=== PATIENT | male | born 1965 | race Caucasian/White ===

== ENCOUNTER → 2018-05-03 07:46 | Outpatient (CLI) | payer BC, SELFPAY ==
--- NOTE | 2018-05-03 | CI_ITS ---
Cerebrovascular Exam Indications: 782.0 Disturbance of skin sensation. IMPRESSIONS 1. The bilateral vertebral arteries are patent with normal antegrade flow. 2. Study suggests 50-69%(lower end of scale)stenosis involving the right internal carotid artery. 3. Study suggests less than 20% stenosis involving the left internal carotid artery. History: Risk factors: Current tobacco use. Hypertension. Diabetes mellitus. Hyperlipidemia. Carotid duplex study. Complete study and Doppler flow study including spectral analysis, color and buck scale imaging. Location: Vascular laboratory. Patient status: Outpatient. Tables: Arterial flow: + +--------+--------+ Location V sys V ed + +--------+--------+ Right CCA - proximal 152cm/s 27.5cm/s + +--------+--------+ Right CCA - distal 83.3cm/s 19.6cm/s + +--------+--------+ Right ECA 203cm/s -------- + +--------+--------+ Right ICA - proximal 152cm/s 57.8cm/s + +--------+--------+ Right ICA - mid 158cm/s 61.6cm/s + +--------+--------+ Right ICA - distal 119cm/s 40.3cm/s + +--------+--------+ Right vertebral 89.4cm/s -------- + +--------+--------+ Left CCA - proximal 158cm/s 33.4cm/s + +--------+--------+ Left CCA - distal 106cm/s 32.4cm/s + +--------+--------+ Left ECA 178cm/s -------- + +--------+--------+ Left ICA - proximal 81.2cm/s 32.3cm/s + +--------+--------+ Left ICA - mid 114cm/s 45.4cm/s + +--------+--------+ Left ICA - distal 95.2cm/s 41cm/s + +--------+--------+ Left vertebral 73.3cm/s -------- + +--------+--------+ Velocity ratios: + + + + + + Right, V sys Right, V ed Left, V sys Left, V ed + + + + + + Max ICA/dist CCA 1.9 3.14 1.08 1.4 + + + + + + (Report amended ) Electronically signed by: Greg Hercules [id number]
== END ==
PROVIDERS: Family Provider Family Medicine; PCP Family Medicine; Visit Provider Family Medicine
DX: R20.9 Unspecified disturbances of skin sensation (principal)
CPT/HCPCS: 93880

== ENCOUNTER → 2019-04-22 14:16 | Outpatient (POV) | payer BC, SELFPAY | PROVIDERS: Visit Provider Dermatology | DX: Z00.00 Encounter for general adult medical examination without abnormal findings (principal) ==